=== PATIENT | male | born 1980 | race Caucasian/White ===

== ENCOUNTER 2020-03-16 00:47 | Emergency (ER) | payer SELFPAY ==
[~2020-03-16] VITALS: Ht 190.5 cm; Wt 77.0 kg
[2020-03-16] MEDS ORDERED: ONDANSETRON 4MG ODT PO STA (01:08)
[2020-03-16 01:31] LABS: BASOPHILS % 0.6 % (0.0-2.0); EOSINOPHILS % 0.5 % (0.0-5.0); HEMATOCRIT. 45.1 % (42.0-52.0); HEMOGLOBIN. 15.2 g/dL (14.0-18.0); LYMPHOCYTES % 39.5 % (20.0-50.0); MEAN CORPUSCULAR HEMOGLOBIN 28.8 pg (28.0-32.0); MEAN CORPUSCULAR VOLUME 85.6 fL (80.0-94.0); MEAN PLATELET VOLUME 7.9 fl (7.4-10.4); MONOCYTES % 7.5 % (2.0-8.0); NEUTROPHILS % 51.9 % (40.0-76.0); PLATELET 241 x1000/uL (130-400); RED BLOOD CELL COUNT 5.27 mill/uL (4.7-6.1); RED CELL DISTRIBUTION WIDTH 13.5 % (11.6-14.6)
[2020-03-16 01:37] LABS: CHLORIDE 107 mEq/L (98-107)
[2020-03-16 01:50] LABS: ETHANOL BLOOD 401 mg/dL
[2020-03-16 07:45] VITALS: BP 121/72
== END 2020-03-16 08:37 | disposition left against medical advice (07) ==
LOC: ER 00:47
DX: F10.229 Alcohol dependence with intoxication, unspecified (principal); Y90.8 Blood alcohol level of 240 mg/100 ml or more; Z59.0 Homelessness
CPT/HCPCS: 36415; 80053; 80320; 85025; 93005; 99285; Q0162; G0480